=== PATIENT | male | born 1935 | race Caucasian/White ===

== ENCOUNTER 2018-05-14 14:22 | Inpatient (IN) ==
--- NOTE | 2018-05-14 16:01 | Diag Imaging Result Doc PS360 ---
EXAM: CHEST-1 VIEW HISTORY: fever TECHNIQUE: Chest single view COMPARISON: 04/28/2014 FINDINGS: Poor inspiratory effort.. The heart is not enlarged. The vessels are not distended. There are no infiltrates. No effusion identified. IMPRESSION: No pneumonia. Electronically signed by Todd Starr 05/14/2018 3:59 PM
--- NOTE | 2018-05-14 16:03 | Diag Imaging Result Doc PS360 ---
EXAM: XRAY HIP W/PELVIS BILAT 3-4VWS HISTORY: fall, FOF, ? hip pain TECHNIQUE: Pelvis and hips, five views COMPARISON: None. FINDINGS: No fracture. No dislocation. Severe atherosclerosis. IMPRESSION: No acute bony injury. Electronically signed by Todd Starr 05/14/2018 4:01 PM
[2018-05-14 16:17] LABS: INR 1.15; PROTIME 15.6 Seconds (11.0-16.0)
[2018-05-14 16:18] LABS: PTT 32.1 Seconds (22.3-41.8)
[2018-05-14 16:32] LABS: ALB/GLOB RATIO 0.6; ALBUMIN 2.6 g/dL (3.5-5.0); CALCIUM 7.9 mg/dL (8.8-10.2); CREATININE 3.3 mg/dL (0.7-1.2); MAGNESIUM 2.3 mg/dL (1.5-2.7); POTASSIUM 4.1 mmol/L (3.5-5.1); TOTAL BILIRUBIN 1.14 mg/dL (0.20-1.00); TOTAL PROTEIN 6.6 g/dL (6.3-8.3)
[2018-05-14 16:54] LABS: URINE SOURCE CATH
[2018-05-14 16:57] LABS: BILIRUBIN URINE NEGATIVE (NEGATIVE); BLOOD URINE LARGE (NEGATIVE); COLOR YELLOW; GLUCOSE URINE NEGATIVE (NEGATIVE); KETONE URINE NEGATIVE (NEGATIVE); LEUKOCYTES URINE NEGATIVE (NEGATIVE); NITRITE URINE NEGATIVE (NEGATIVE); PH URINE 5.5; PROTEIN URINE 30 mg/dL (NEGATIVE); SP GRAVITY URINE 1.007; TURBIDITY URINE CLEAR (CLEAR); UROBILINOGEN URINE NORMAL (NORMAL)
[2018-05-14 16:58] LABS: UR EPITHELIAL CELLS <10 /HPF (<10); URINE BACTERIA NEGATIVE /HPF; URINE WBC <10 /HPF (<10)
[2018-05-14 17:01] LABS: CK INDEX 0.6 (0.0-2.5); CK-MB 69.62 ng/mL (0.0-5.0)
[2018-05-14] MEDS ORDERED: SODIUM BICARBONATE 8.4% 100 MEQ in D5W 1,000 ML IV ONE (18:06)
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
[2018-05-14] MEDS ORDERED: SODIUM BICARBONATE 8.4% 100 MEQ in D5W 1,000 ML IV SCH (19:00)
[2018-05-14 20:11] LABS: BASO# 0.02 X1000 (0.0-0.2); BASO% 0.2 % (0.0-0.8); HEMATOCRIT 37.8 % (42.0-52.0); HEMOGLOBIN 12.2 g/dL (14.0-18.0); IMM GRAN# 0.02 X1000 (0.0-0.04); IMM GRAN% 0.2 % (0.0-0.5); LYMPH% 12.3 % (20.5-51.1); MCHC 32.3 g/dL (33-37); MCV 105.3 FL (81-99); MONO# 0.89 X1000 (0.11-0.59); MONO% 9.1 % (1.7-9.3); MPV 9.8 FL (7.4-10.4); NEUT# 7.56 X1000 (1.4-6.5); NEUT% 77.2 % (42.2-75.2); PLT 65 X1000 (130-400); RBC 3.59 XMIL (4.7-6.1); RDW 13.3 % (11.5-14.5); WBC 9.79 X1000 (4.8-10.8)
[2018-05-14] MEDS: ROCEPHIN 1 GM in NS 50 ML IV SCH (20:38)
--- NOTE | 2018-05-14 22:51 | HISTORY AND PHYSICAL ---
ADMITTING PHYSICIAN: Dr. Abraham Churchill. CHIEF COMPLAINT: Fever and fell down. PRESENT ILLNESS: Patient is an 82-year-old, white male who is taken care of by his family at home, who had been running fever yesterday, up to 102 degrees Fahrenheit. He, apparently, fell and the family had monitors watching him and found him about 30 minutes after he fell. He said he did not complain of a whole lot, at that time, but overnight and into the next morning he started complaining of aching all over. The patient has multiple problems in his past history. PAST MEDICAL HISTORY: Past history includes history of alcohol abuse with cirrhosis, cervical spondylosis, COPD, L2 compression fracture, dementia, hypertension, gout, prostate cancer, hepatitis C infection, and has good bit of swelling, he is now complaining of aching and hurting all over but, apparently, he was sick even before he had his fall. He had been on Aldactone at one time, and that was stopped because of hyperkalemia. CURRENT MEDICATIONS INCLUDE: 1. Allopurinol 100 mg daily. 2. Flexeril 5 mg at bedtime for muscle aches. 3. Benadryl 12.5 mg p.o. q.4-6 hours p.r.n. 4. Colace 100 mg p.o. b.i.d. 5. He has been on Lovenox, at least at 1 point, may still be 30 mg subcutaneously daily. 6. Furosemide 20 mg daily, but he is also on Bumex as well. 7. Hydrocodone 1 p.o. b.i.d., 8. [place] 5-325. 9. Medrol Dosepak was listed on his records. 10. Flagyl was listed on his records at 500 mg p.o. t.i.d., not sure that he is currently on that. 11. Omeprazole 20 mg p.o. daily. 12. Potassium chloride 20 mEq daily. 13. Still listed as spironolactone, but family tells me he is not on that anymore. 14. Tamsulosin 0.4 mg p.o. daily. 15. Trazodone 50 mg at bedtime. So, he is on several anticholinergic medications. FAMILY HISTORY INCLUDES: Four girls and 2 boys in good health. SOCIAL HISTORY: He was a very heavy drinker and smoker at one time, quit drinking about 10 years ago, but did have cirrhosis. Family members do tell me that he has got some dementia. He is a Do Not Resuscitate. REVIEW OF SYSTEMS: Neurological: Denies headaches, seizures, visual problems. Pulmonary: Says he has had a cough. Cardiovascular: Denies chest pain, heart palpitations, PND. Does have generalized edema, I do not know whether this is from his cirrhosis or whether he has had some heart failure. I was told that he had an echocardiogram sometime in the past that was normal. Genitourinary: Has had prostate cancer. He takes tamsulosin for urination. He has been on allopurinol in the past, not sure whether he is still on that or not. The patient has had a ruptured diverticulum and had to have a partial colectomy, had that colostomy revised and then he had some ischemic bowel at one time, had some surgery on it as well. Endocrine: He has no diabetes or pituitary or thyroid problems. Psychiatric: Apparently has had some depression, sleep disturbance, takes trazodone for that. PHYSICAL EXAMINATION: VITAL SIGNS: Temperature 97.9 degrees Fahrenheit, but family tells me yesterday he had a temperature of 102 degrees Fahrenheit. Pulse 87, respirations 18, blood pressure 109/60. Oxygen saturation on room air was 100%. HEENT: Normocephalic. EOMs intact. PERRLA. Throat clear. NECK: Does hold his neck and his head to the right, he says ever since he had a fall he has done that. Has a history of spinal stenosis. LUNGS: Clear to auscultation and percussion without rhonchi, rales, or wheezes. HEART: Regular rate and rhythm without murmurs, gallops, friction rubs. ABDOMEN: Soft. Active bowel sounds. No organomegaly or tenderness. NEUROLOGICAL: The patient is a little confused, does wake up and talk with me but does not answer most of my questions. Family members were there who did answer questions. RECTAL: Deferred. GENITOURINARY/RECTAL: Deferred. EXTREMITIES: Do show 4+ pitting edema. He has generalized edema as well. LAB WORK: His sodium was 144, potassium 4.1, chloride 101, CO2 of 28, BUN is 56, creatinine 3.3. Blood sugar is 149. Not sure what his creatinine has been in the past but his daughter that is with him is a nurse, she says she does not believe it has ever been that high before. His creatine kinase was 11,108. He has elevated liver function tests with a total bilirubin of 1.14, AST of 366, ALT of 68. CK index is only 0.6, MB is 69.62, troponin 0.085. I do not believe this is his heart, I think it is skeletal muscle. Urinalysis did show 10 to 20 RBCs with a large amount of blood, negative for leukocytes, negative for bacteria. The patient has complained that he aches all over. Has not been tested for flu yet, we will do this. Also, have to be concerned possibly about sepsis but I do not see a CBC on the chart yet. ASSESSMENT: 1. Rhabdomyolysis. 2. Renal failure. 3. Possible sepsis. 4. Rule out influenza. 5. Cirrhosis. 6. Chronic edema. 7. Dementia. 8. Prostate cancer. 9. The patient is a DO NOT RESUSCITATE. PLAN: Will place in the hospital. Test for flu. We will start IV antibiotics, give IV fluids. Have to be careful with that as well due to his condition of retaining fluid. As far as we know, it is not heart failure, at least it is not systolic heart disease or has not been in the past. cc: MD Abraham Llanos Jr, MD
[2018-05-15 06:36] LABS: BASO# 0.02 X1000 (0.0-0.2); BASO% 0.2 % (0.0-0.8); EOS# 0.53 X1000 (0.0-0.7); EOS% 5.6 % (0.0-10.0); HEMOGLOBIN 11.6 g/dL (14.0-18.0); LYMPH# 1.93 X1000 (1.2-3.4); LYMPH% 20.3 % (20.5-51.1); MCH 33.3 PG (27-31); MCHC 32.2 g/dL (33-37); MCV 103.4 FL (81-99); MONO# 1.01 X1000 (0.11-0.59); MONO% 10.6 % (1.7-9.3); MPV 10.2 FL (7.4-10.4); NEUT# 6.04 X1000 (1.4-6.5); NEUT% 63.3 % (42.2-75.2); PLT 60 X1000 (130-400); RBC 3.48 XMIL (4.7-6.1); RDW 13.3 % (11.5-14.5); WBC 9.53 X1000 (4.8-10.8)
[2018-05-15 07:13] LABS: ALB/GLOB RATIO 0.5; ALBUMIN 2.2 g/dL (3.5-5.0); CALCIUM 7.7 mg/dL (8.8-10.2); CREATININE 3.2 mg/dL (0.7-1.2); POTASSIUM 3.8 mmol/L (3.5-5.1); TOTAL BILIRUBIN 0.95 mg/dL (0.20-1.00); TOTAL PROTEIN 6.3 g/dL (6.3-8.3)
--- NOTE | 2018-05-15 09:13 | ED EKG INTERP ---
This chart was entered by Yen Munoz Scribe, acting as scribe for Mamadou Chino MD. EKG Interpretation - EKG Time of EKG reading by physician:: 18:31 EKG Read and Signed by:: Mamadou Chino EKG Interpretation (*Must complete 3 of following elements*): Abnormal (sinus rhythm with 1st degree AV block with premature atrial complexes with aberrant conduction. Right bundle branch block Septal infarct, age undetermined. Abnormal ECG) Rate: 85 Rhythm: Sinus [place]: normal QRS: RBB Attestation - Physician/ LANETTE Attestation The physician spent face to face time with patient:: Yes Advanced Practice Provider documentation review:: Supervising physician onsite and consulted in the evaluation and care of this patient. The physician did have a face to face encounter with the patient. This chart was documented by the indicated scribe, (Yen Munoz Scribe) and accurately reflects the services I performed and decisions made by me, Mamadou Chino MD, as attested by the provider's signature.
[2018-05-15 11:47] LABS: URINE SOURCE CATH
[2018-05-15 11:49] LABS: BILIRUBIN URINE NEGATIVE (NEGATIVE); BLOOD URINE MODERATE (NEGATIVE); COLOR YELLOW; GLUCOSE URINE NEGATIVE (NEGATIVE); KETONE URINE NEGATIVE (NEGATIVE); LEUKOCYTES URINE MODERATE (NEGATIVE); NITRITE URINE NEGATIVE (NEGATIVE); PH URINE 5.5; PROTEIN URINE 30 mg/dL (NEGATIVE); TURBIDITY URINE HAZY (CLEAR); UROBILINOGEN URINE NORMAL (NORMAL)
[2018-05-15 11:57] LABS: UR EPITHELIAL CELLS <10 /HPF (<10); URINE BACTERIA NEGATIVE /HPF; URINE CASTS GRANULAR PRESENT; URINE CRYSTALS NONE SEEN; URINE RBC 20-40 /HPF (<10); URINE SMALL ROUND CELLS NONE SEEN; URINE YEAST NONE SEEN
[2018-05-15 13:43] LABS: UR CREAT RANDOM 117.1 mg/dL (14-26); UR PROT RANDOM 39.5 mg/dL
--- NOTE | 2018-05-15 14:06 | PROGRESS NOTE ---
DATE: 05/15/2018 SUBJECTIVE: The patient says he feels a little bit better. He had a fall and has developed rhabdomyolysis. He has cirrhosis and ascites with edema. He has also had some kidney failure. OBJECTIVE: Vital Signs: Blood pressure 100/65, respirations 19, pulse 105. Temperature was 99.2 degrees Fahrenheit. Supposedly had a 102 temperature at home. HEENT: Normocephalic. EOMs intact. Neck: He holds his neck to the right because of spinal stenosis. He head is pointed to the right. Lungs: Have a few wheezes anteriorly. He had been a smoker at one time and may have some COPD. Chest x-ray was clear. Heart: Regular rate and rhythm without murmurs, gallops, or friction rubs. Abdomen: Soft. Active bowel sounds. No organomegaly or tenderness. He does have what appears to be ascites. Neurological: Intact grossly. LABORATORY DATA: White count is only 9530. Hemoglobin 11.6, hematocrit 36.0. Creatinine is 3.2, BUN 61. His CK is down from 11,246 to 4690. Awaiting blood cultures and urine cultures. Influenza screen was negative. ASSESSMENT: 1. Rhabdomyolysis. 2. Fall. 3. Rule out sepsis. 4. Renal failure. 5. Cirrhosis. PLAN: Continue support. The patient may also have a COPD. He could not tell me how long he smoked. cc: MD Abraham Llanos Jr, MD
--- NOTE | 2018-05-15 15:07 | Diag Imaging Result Doc PS360 ---
EXAM: US RENAL 2 (RETROPER) COMPLETE HISTORY: decreased renal function TECHNIQUE: Renal ultrasound COMPARISON: None. FINDINGS: The kidney is poorly seen. The right kidney measures 8.7 x 4.0 x 4.3 cm. Mild cortical thinning. No stone or hydronephrosis. No renal mass. The left kidney measures 9.8 x 4.0 x 5.9 cm. Normal renal echotexture. Borderline mild cortical thinning. No stone or hydronephrosis. No renal mass. There is a Butts catheter within the urinary bladder. IMPRESSION: No focal abnormality identified. Electronically signed by Todd Starr 05/15/2018 3:05 PM
[2018-05-15] MEDS: ROCEPHIN 1 GM in NS 50 ML IV SCH (20:07)
[2018-05-16 06:14] LABS: BASO# 0.02 X1000 (0.0-0.2); BASO% 0.3 % (0.0-0.8); EOS# 0.44 X1000 (0.0-0.7); EOS% 5.8 % (0.0-10.0); HEMATOCRIT 32.8 % (42.0-52.0); HEMOGLOBIN 10.6 g/dL (14.0-18.0); LYMPH# 2.27 X1000 (1.2-3.4); LYMPH% 29.8 % (20.5-51.1); MCH 33.5 PG (27-31); MCHC 32.3 g/dL (33-37); MCV 103.8 FL (81-99); MONO# 0.83 X1000 (0.11-0.59); MONO% 10.9 % (1.7-9.3); MPV 9.9 FL (7.4-10.4); NEUT# 4.06 X1000 (1.4-6.5); NEUT% 53.2 % (42.2-75.2); PLT 71 X1000 (130-400); RBC 3.16 XMIL (4.7-6.1); WBC 7.62 X1000 (4.8-10.8)
[2018-05-16 06:27] LABS: ALB/GLOB RATIO 0.5; CALCIUM 7.5 mg/dL (8.8-10.2); CREATININE 2.9 mg/dL (0.7-1.2); POTASSIUM 3.9 mmol/L (3.5-5.1); TOTAL BILIRUBIN 0.83 mg/dL (0.20-1.00); TOTAL PROTEIN 5.9 g/dL (6.3-8.3)
[2018-05-16] MEDS: NICODERM PATCH TD SCH (11:10)
--- NOTE | 2018-05-16 13:06 | PROGRESS NOTE ---
DATE: 05/16/2018 SUBJECTIVE: The patient is more alert. He is feeling better. His appetite is increased. OBJECTIVE: Vital Signs: Blood pressure 137/69, respirations 16, pulse 90, temperature 98.8 degrees Fahrenheit. HEENT: Normocephalic. EOMs intact. PERRLA. Throat clear. Lungs: Clear to auscultation and percussion without rhonchi, rales, or wheezes. Heart: Regular rate and rhythm without murmurs, gallops, friction rubs. Abdomen: Soft. Active bowel sounds. No organomegaly or tenderness. Neurological: Intact grossly. The patient does have ascites and has a history of liver disease. LABORATORY DATA: Urinalysis now shows 10 to 20 WBCs per high-power field. He probably does have a urinary tract infection. ASSESSMENT: 1. Rhabdomyolysis. 2. Fall. 3. Rule out sepsis. One blood culture has gram-positive cocci. We are waiting for the rest of that. 4. Renal failure with creatinine coming down to 2.9. 5. Cirrhosis. 6. Probable urinary tract infection. PLAN: Continue antibiotics. Await culture reports. Urine culture actually showed no growth, but he has pus now. Will re-culture. cc: MD Abraham Llanos Jr, MD
[2018-05-16] MEDS: ROCEPHIN 1 GM in NS 50 ML IV SCH (20:14)
[2018-05-17 05:41] LABS: BASO# 0.02 X1000 (0.0-0.2); BASO% 0.4 % (0.0-0.8); EOS# 0.43 X1000 (0.0-0.7); EOS% 7.8 % (0.0-10.0); HEMATOCRIT 33.1 % (42.0-52.0); HEMOGLOBIN 10.8 g/dL (14.0-18.0); LYMPH# 1.11 X1000 (1.2-3.4); LYMPH% 20.3 % (20.5-51.1); MCH 33.9 PG (27-31); MCHC 32.6 g/dL (33-37); MCV 103.8 FL (81-99); MONO# 0.71 X1000 (0.11-0.59); MPV 9.5 FL (7.4-10.4); NEUT# 3.21 X1000 (1.4-6.5); NEUT% 58.5 % (42.2-75.2); PLT 75 X1000 (130-400); RBC 3.19 XMIL (4.7-6.1); WBC 5.48 X1000 (4.8-10.8)
[2018-05-17 05:58] LABS: ALB/GLOB RATIO 0.5; CREATININE 2.2 mg/dL (0.7-1.2); POTASSIUM 4.4 mmol/L (3.5-5.1); TOTAL BILIRUBIN 0.91 mg/dL (0.20-1.00); TOTAL PROTEIN 6.2 g/dL (6.3-8.3)
--- NOTE | 2018-05-17 09:12 | EKG Report ---
Test Performed on : 05/14/2018 6:25:49 PM Test Reason : LH Blood Pressure : / mmHG Vent. Rate : 085 BPM Atrial Rate : 085 BPM P-R Int : 214 ms QRS Dur : 126 ms QT Int : 420 ms P-R-T Axes : -06 -23 -28 degrees QTc Int : 499 ms Sinus rhythm. with 1st degree AV block. with premature atrial complexes. with aberrant conduction. Right bundle branch block Septal infarct (cited on or before 01-APR-2014) Abnormal ECG When compared with ECG of 19-APR-2014 07:28, aberrant conduction. is now present [place] interval has increased Vent. rate has decreased BY 54 BPM Right bundle branch block is now present Questionable change in initial forces of Anterolateral leads Unconfirmed Result
[2018-05-17] MEDS: NICODERM PATCH TD SCH (09:20)
--- NOTE | 2018-05-17 15:46 | NEPHROLOGY CONSULTATION ---
DATE: 05/17/2018 REASON FOR ADMISSION: Fall, fever. REASON FOR CONSULTATION: Acute kidney injury. CONSULTING PHYSICIAN: Dr. Fish. HISTORY OF PRESENT ILLNESS: This is an 82-year-old gentleman who is taken care of by his family. He had multiple episodes of fever. The patient had a fall and was down for about 30 minutes. The next day complained of severe pain and aching all over. In the emergency room he was found to have a creatinine of 3.3, BUN of 56, sodium of 144. He had a CK of 11,000, CK- MB was 69.62. He had a large amount of blood but negative for leukocytes or bacteria. He had negative flu test. Patient was admitted to the hospital with acute renal failure likely secondary to rhabdomyolysis. Patient has been treated with IV fluids and renal function has improved steadily since admission and is down to 2.2 today. Urine output has been excellent with greater than 2 L urine output. He is awake and alert today without any issues. PAST MEDICAL HISTORY: Cirrhosis, spondylolysis, COPD, dementia, hypertension, gout, prostate cancer, hepatitis C, edema. ALLERGIES: Amantadine. HOME MEDICATIONS: Allopurinol, Flexeril, Benadryl, Colace, Lovenox, furosemide , hydrocodone, [place], Medrol dose pack, Flagyl, omeprazole, sodium chloride, spironolactone, trazodone. FAMILY HISTORY: Noncontributory. SOCIAL HISTORY: Previously heavy drinker and smoker quit about 10 years ago. No ETOH, tobacco or illicit drug use currently. He is a DNR 1. REVIEW OF SYSTEMS: Pertinent positives noted in the HPI. PHYSICAL EXAM: Vital Signs: Temperature 98.2 degrees, pulse 94, respiratory rate 12, blood pressure 126/70, intake 1.9 L, output 2.2 L. General: This is an elderly gentleman sitting up in bed, he is awake and alert. He answers yes to everything. His daughter comes up to the bedside states this is usual state of health. HEENT: Normocephalic, atraumatic. BART. Conjunctivae are pale. Oral mucosa dry. Dentition poor. Neck: Supple. There is no JVD. Cardiovascular: Regular rate and rhythm. He has a large bruise to his upper chest wall. Pulmonary: He has equal excursion. He is clear bilaterally. Abdomen: Soft, distended, positive bowel sounds. : Butts catheter, yellow urine. Extremities: He has significant pitting edema bilateral lower extremities up to the waist. Integumentary: Skin is warm and dry. Neurologic : Again some confusion but grossly nonfocal. LAB DATA: WBC of 5.4, hemoglobin 10.8, sodium 143, potassium 4.4, CO2 31, BUN 60, creatinine 2.2, albumin 2.0, CK 870 (1868, 4690). ASSESSMENT/PLAN: Acute on chronic kidney disease in setting of rhabdomyolysis. Patient has had significant improvement over the course of the hospitalization. He does not need further intervention from a renal standpoint in the form of dialysis. We agree with the current treatment plan and will make no changes. Will continue to monitor him while he is in the hospital. Dictated by BROWN Minaya for Javier Stewart MD Face to face encounter, data reviewed, discussed with Bolivar Starks on 05/17/18. I agree with the above assessment and plan of care. cc: MD Abraham Carpenter MD [facility]
[2018-05-17] MEDS: ROCEPHIN 1 GM in NS 50 ML IV SCH (20:19)
[2018-05-17] MEDS: COLACE PO SCH (20:27)
[2018-05-17] MEDS: PROTONIX IV SCH (20:28)
[2018-05-17] MEDS: FLOMAX PO SCH (20:28)
[2018-05-17] MEDS: SODIUM CHLORIDE 0.9% INJ SCH (20:28)
--- NOTE | 2018-05-18 05:37 | PROGRESS NOTE ---
DATE: 05/17/2018 HISTORY: An 82-year-old, white gentleman, patient of mine, who was not seen since September 2016. Was brought in by family over the weekend with altered mental status, acute kidney injury, fall, and fever. He was admitted in the ICU by Dr. Fish. Apparently, he has slight rhabdomyolysis and kidney injury, on IV fluids which have been stopped. Ultrasound was done. It showed chronic medical renal disease. Butts was placed. He has been eating breakfast. Family was at bedside. PAST MEDICAL HISTORY: Reviewed. PAST SURGICAL HISTORY: Reviewed. MEDICINES: Reviewed. ALLERGIES: Memantine. REVIEW OF SYSTEMS: No headache. No vision problem. No earache. No sore throat. Cardiopulmonary: No chest pain or shortness of breath. GI: No constipation. No neurological symptoms or weakness. PHYSICAL EXAMINATION: Vital Signs: Stable. Temperature is 98 degrees, pulse 93, blood pressure 126/69. HEENT Examination: 2 cm basal cell originating from the left philtrum. He is eating breakfast. He is kyphotic. Bilateral air entry. Heart sounds are regular. Belly is soft , nontender. No obvious neurological deficits. LABORATORY DATA: CBC: White cell count 5.4, hematocrit 33, platelets 75,000. SMA 7: Sodium 143, potassium 4.2, chloride 103, BUN 60, creatinine 2.2, calcium 8.0. LFTs are slightly high. CK was coming down. Urine myoglobin was positive. Albumin is 2.0. Urinalysis is positive for blood and infection. Urine myoglobin is high. Blood cultures, Streptococcus viridans positive. Urine cultures were negative. Influenza test was negative. Ultrasound of the kidneys, small contracted kidneys. Chest x-ray on 05/14/2018 , no acute disease. X-ray of the pelvis, no acute bony injury. EKG, sinus rhythm, first-degree AV block, incomplete right bundle. X-ray of the pelvis, no acute bony injury. ASSESSMENT AND PLAN: 1. An 82-year-old, white male admitted to the hospital with rhabdomyolysis after he fell and with acute kidney injury. Off intravenous fluids and CK was coming down. We will follow up on the labs in the morning. 2. Hip injury. No acute bony injury identified. 3. 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 4. Chronic hepatitis C. 5. Elevated liver function tests, stable. 6. Thrombocytopenia, stable. 7. History of prostate cancer. We will follow up on PSA. 8. History of dementia, stable. 9. Aortic stenosis. Echocardiography last was done 2013. 10. History of a left colectomy due to ischemic colitis in 2014, stable. 11. Last PSA was 6.5, followed by Dr. Dasilva. 12. Streptococcus mitis infection. He is on intravenous ceftriaxone. 13. Gastrointestinal prophylaxis with intravenous Protonix. 14. Benign prostatic hypertrophy, on Flomax. 15. We will slowly reconcile home medicines. 16. Living will is Do Not Resuscitate. 17. We will transfer to the floor when a bed is available. LEVEL OF DOCUMENTATION: Thirty-five minutes. Discussed the plan of care with the family at bedside. cc: Abraham Churchill MD MTDD
[2018-05-18 05:38] LABS: BASO# 0.02 X1000 (0.0-0.2); BASO% 0.4 % (0.0-0.8); EOS# 0.47 X1000 (0.0-0.7); EOS% 8.8 % (0.0-10.0); HEMATOCRIT 32.2 % (42.0-52.0); HEMOGLOBIN 10.4 g/dL (14.0-18.0); IMM GRAN# 0.02 X1000 (0.0-0.04); IMM GRAN% 0.4 % (0.0-0.5); LYMPH# 1.25 X1000 (1.2-3.4); LYMPH% 23.3 % (20.5-51.1); MCH 33.4 PG (27-31); MCHC 32.3 g/dL (33-37); MCV 103.5 FL (81-99); MONO# 0.83 X1000 (0.11-0.59); MONO% 15.5 % (1.7-9.3); MPV 9.4 FL (7.4-10.4); NEUT# 2.78 X1000 (1.4-6.5); NEUT% 51.6 % (42.2-75.2); PLT 75 X1000 (130-400); RBC 3.11 XMIL (4.7-6.1); RDW 13.1 % (11.5-14.5); WBC 5.37 X1000 (4.8-10.8)
[2018-05-18 06:14] LABS: AGAP 9; BUN 57 mg/dL (8-22); CHLORIDE 104 mmol/L (98-107); COSMO 301; GLUCOSE 101 mg/dL (70-104); POTASSIUM 4.3 mmol/L (3.5-5.1); SODIUM 143 mmol/L (136-145); TCO2 30 mmol/L (25-35)
[2018-05-18 06:15] LABS: ALB/GLOB RATIO 0.6; ALBUMIN 2.2 g/dL (3.5-5.0); ALKALINE PHOSPHATASE 81 U/L (32-122); CALCIUM 7.3 mg/dL (8.8-10.2); TOTAL BILIRUBIN 1.14 mg/dL (0.20-1.00)
[2018-05-18 06:16] LABS: GOT 124 U/L (10-34); GPT 53 U/L (10-44)
[2018-05-18] MEDS: NICODERM PATCH TD SCH (09:15)
[2018-05-18] MEDS: COLACE PO SCH ×2 (09:15→22:28)
[2018-05-18] MEDS: LEXAPRO PO SCH (09:15)
--- NOTE | 2018-05-18 15:19 | NEPHROLOGY PROGRESS NOTE ---
DATE: 05/18/2018 SUBJECTIVE: He states he is "good as he can be." No new complaints. No nausea, shortness of breath, etc. OBJECTIVE: Vital Signs: Blood pressure 126/68, heart rate 94, respirations 17. Intake and output: Intake 1 L. Output 1 L. General: Chronically ill, no distress. Skin: Warm and dry. HEENT: Conjunctivae are pink. Oropharynx is dry. Neck: Neck veins are not visible. Heart: Regular. Lungs: Equal. No crackles. Abdomen: Soft, nontender. Bowel sounds present. Extremities: 2+ edema. No clubbing or cyanosis. IMPRESSION: Acute kidney injury. BUN and creatinine continue to improve. Acceptable urine output. He does not meet criteria for dialysis. cc: MD Abraham Carpenter MD
--- NOTE | 2018-05-18 21:51 | PROGRESS NOTE ---
DATE: 05/18/2018 SUBJECTIVE: The patient is feeling better and no complaints. EXAMINATION: Vital Signs: Temp is 98, pulse 95, blood pressure 120/69. HEENT: Within normal limits. Basal cell on the left side of the philtrum noted. Chest: Chest is bilateral air entry. Heart sounds are regular with a subtle murmur in the aortic area. Abdomen: Belly is soft, nontender. Extremities: He has a chronic venous stasis dermatitis changes noted in both legs. He is bedridden. He still has a Butts catheter. INVESTIGATIONS: CBC: White cell count 5.3, hematocrit 33, MCV 5, platelets 75, 000. SMA-7: BUN is 7, sodium 143 potassium 4.3 chloride 104, BUN 57, creatinine 2.0, glucose 101 , calcium 7.3. Liver function tests were slightly high. PSA was 10.74. Urine cultures negative. Blood cultures were negative. One is positive for Strep Viridans ASSESSMENT AND PLAN: 1. Acute kidney injury due to mild rhabdomyolysis, improving. 2. CA of prostate. PSA was 10, under the care of Dr. Dasilva. Continue on Flomax. 3. DVT prophylaxis with Lovenox. 4. Hepatitis C, thrombocytopenia, elevated LFTs stable. 5. Depression, on Lexapro. 6. Chronic insomnia; on trazodone. 7. Continue on MiraLAX for stool softener, Strep viridans infection on IV ceftriaxone. 8. Repeat the labs in the morning and transferred to the floor. Living will, DNR. Slowly ambulate for assistance with Physical Therapy. We will discuss with the family about the disposition. LEVEL OF DOCUMENTATION: 25 minutes. cc: Abraham Churchill MD [facility]
[2018-05-18] MEDS: DESYREL PO SCH (22:28)
[2018-05-18] MEDS: FLOMAX PO SCH (22:28)
[2018-05-18] MEDS: ROCEPHIN 1 GM in NS 50 ML IV SCH (22:35)
[2018-05-18] MEDS: PROTONIX IV SCH (22:35)
[2018-05-19 06:45] LABS: ALB/GLOB RATIO 0.6; ALBUMIN 2.1 g/dL (3.5-5.0); CREATININE 1.9 mg/dL (0.7-1.2); TOTAL BILIRUBIN 1.33 mg/dL (0.20-1.00); TOTAL PROTEIN 5.7 g/dL (6.3-8.3)
[2018-05-19] MEDS: LOVENOX SUBQ SCH (09:40)
[2018-05-19] MEDS: MIRALAX PO SCH (09:40)
[2018-05-19] MEDS: NICODERM PATCH TD SCH (09:40)
[2018-05-19] MEDS: COLACE PO SCH ×2 (09:40→21:37)
[2018-05-19] MEDS: LEXAPRO PO SCH (09:40)
--- NOTE | 2018-05-19 11:29 | NEPHROLOGY PROGRESS NOTE ---
DATE: 05/19/2018 TIME SEEN: 0730. SUBJECTIVE: Patient is resting in bed. He is awake and alert. No complaints. OBJECTIVE: Vital Signs: Temperature 97.8 degrees, pulse 85, respiratory rate 16, blood pressure 121/59. Intake 1.5 L. Output 1.1 L. Physical Examination: General: Elderly gentleman resting in bed. Awake and alert. He is in no acute distress. HEENT: Normocephalic, atraumatic. BART. Neck: Supple without JVD. Cardiovascular: Regular rate and rhythm. Pulmonary: He is clear bilaterally. Abdomen: Soft. Positive bowel sounds. : No inspected. Extremities: There is 1 to 2+ edema. No clubbing or cyanosis. Integumentary: Skin is warm and dry with multiple areas of ecchymoses noted, especially across the chest area. Lab Data: Sodium 138, potassium 4.0, CO2 31, creatinine 1.9 (2.0). ASSESSMENT AND PLAN: 1. Acute kidney injury with slow improvement. Urine output is acceptable. 2. History of elevated prostate-specific antigen, followed by primary and urology. Dictated by BROWN Minaya for Javier Stewart MD Face to face encounter, data reviewed, discussed with Bolivar Starks on 05/19/18. I agree with the above assessment and plan of care. cc: MD Abraham Carpenter MD MTDD
[2018-05-19] MEDS ORDERED: NS 1,000 ML ONE (12:13)
--- NOTE | 2018-05-19 19:19 | PROGRESS NOTE ---
DATE: 05/19/2018 SUBJECTIVE: The patient is getting better. Out of the ICU. Family at the bedside. Wants to go back home with home health care. Wants physical therapy. SUBJECTIVE: Vital signs: He is afebrile. Vitals are stable. Pulse is 100, blood pressure 122/66. HEENT: Within normal limits. Bruising noted. Chest: Clear. Heart: Sounds are regular. Abdomen: Belly is soft, nontender. : Butts was placed. Musculoskeletal: Stasis changes in both legs. INVESTIGATIONS: SMA 7: BUN 57, creatinine 1.9. LFTs were high. PSA 10.7. Urine cultures were negative. ASSESSMENT AND PLAN: 1. Acute kidney injury due to rhabdomyolysis, stable. 2. Prostate cancer. Stable on Flomax. 3. Living Will/Do not resuscitate. 4. Deep vein thrombosis prophylaxis. Lovenox. 5. Chronic thrombocytopenia, hepatitis C, stable. Continue IV ceftriaxone and repeat the blood workup in the morning. Continue present treatment. LEVEL OF DOCUMENTATION: 25 minutes. cc: Abraham Churchill MD
[2018-05-19] MEDS: ROCEPHIN 1 GM in NS 50 ML IV SCH (21:37)
[2018-05-19] MEDS: FLOMAX PO SCH (21:37)
[2018-05-19] MEDS: DESYREL PO SCH (21:37)
[2018-05-19] MEDS: PROTONIX IV SCH (21:37)
[2018-05-20] MEDS ORDERED: LASIX IV ONE (07:12)
[2018-05-20 07:41] LABS: CALCIUM 7.9 mg/dL (8.8-10.2); CREATININE 2.1 mg/dL (0.7-1.2); POTASSIUM 4.1 mmol/L (3.5-5.1)
[2018-05-20 07:49] LABS: HEMATOCRIT 30.5 % (42.0-52.0); HEMOGLOBIN 9.9 g/dL (14.0-18.0); MCH 33.8 PG (27-31); MCHC 32.5 g/dL (33-37); MCV 104.1 FL (81-99); MPV 9.6 FL (7.4-10.4); RBC 2.93 XMIL (4.7-6.1); RDW 13.3 % (11.5-14.5); WBC 6.14 X1000 (4.8-10.8)
[2018-05-20] MEDS: LOVENOX SUBQ SCH (08:47)
[2018-05-20] MEDS: NICODERM PATCH TD SCH (08:48)
[2018-05-20] MEDS: LEXAPRO PO SCH (08:48)
[2018-05-20] MEDS: COLACE PO SCH ×2 (08:48→20:32)
--- NOTE | 2018-05-20 10:26 | NEPHROLOGY PROGRESS NOTE ---
DATE: 05/20/2018 DATE SEEN: 05/20/2018. TIME SEEN: 0635. SUBJECTIVE: Mr. Rangel is resting in bed. He is supine. He states that he has slight neck discomfort to the left with bruising evident. Otherwise, denies chest pain or increased work of breathing. OBJECTIVE: His most recent vital signs, temperature 98.5 degrees, blood pressure 127/50, heart rate 94, respirations 16. He is on room air. Last recorded saturation is 94%. He has had 1080 in, 800 out to Butts catheter. LABORATORY DATA: Sodium is 134, potassium 4.1, chloride 97, CO2 29, BUN 60, creatinine 2.1, glucose 96. His anion gap is 8, calcium is 7.9. Previous albumin 2.1. White count 6.14, hemoglobin 9.9, hematocrit 30.5 with a platelet count of 80,000. PHYSICAL EXAMINATION: General: This is an 82-year-old white male, currently resting in bed. He appears in no acute distress though he is chronically ill. Skin: Warm and dry. HEENT: Normocephalic, atraumatic. Conjunctiva is pale. BART. Mucous membranes are dry. Neck: Supple. Trachea midline. Trace JVD, 8 cm. Cardiovascular: Regular rate and rhythm. He has a systolic murmur present. Lungs: Diminished breath sounds. Clear to auscultation bilateral. O2 supplementation in place. Abdomen: Soft. Slightly distended. Positive bowel sounds. Genitourinary: Not inspected. Butts catheter is in place with adequate urine out. Extremities: There is 1-2+ lower extremity edema. Integumentary: Warm and dry with multiple areas of ecchymosis noted to his upper chest and upper arms. Neurological: Alert and oriented to person and place only. ASSESSMENT AND PLAN: 1. Acute kidney injury. Patient continues to have slow improvement. His creatinine today remains stable at 2.1 from 1.9 on the previous day. His BUN is just slightly elevated today. He was given Lasix yesterday. He continues with slight jugular venous distension. We will plan to give him 40 mg of Lasix IV today also. Continue to monitor. He has had adequate urine output. 2. Electrolytes and acid-base balance. These are acceptable. 3. Anemia. This is low but stable. 4. Fluid volume overload. Again, patient has positive jugular venous distension , again with Lasix to be given today. 5. Possible rhabdomyolysis. Patient's last CPK was down to 180 yesterday. I would like to thank you for allowing us to follow with this patient. Dictated by BROWN Fatima for Javier Stewart MD Face to face encounter, data reviewed, discussed with Yvonne Marques on 05/20/18. I agree with the above assessment and plan of care. cc: BROWN Fatima MD Jagan Reddy, MD [facility]
[2018-05-20] MEDS: ROCEPHIN 1 GM in NS 50 ML IV SCH ×2 (20:31→22:31)
[2018-05-20] MEDS: FLOMAX PO SCH (20:32)
[2018-05-20] MEDS: DESYREL PO SCH (20:32)
[2018-05-20] MEDS: PROTONIX IV SCH ×2 (20:32→22:34)
--- NOTE | 2018-05-20 20:56 | PROGRESS NOTE ---
DATE: 05/20/2018 SUBJECTIVE: The patient is getting better. Complains of insomnia, still bedridden. EXAMINATION: Vital Signs: Temperature is 97, pulse is 80, blood pressure is 118/52. on O2 ]nasal cannula. HEENT: Exam within normal limits. Neck: Supple. No lymphadenopathy. Chest: Bilateral air entry. Heart: Sounds are regular. Abdomen: Belly is soft, nontender. Decreased redness in both legs. INVESTIGATIONS: CBC: White cell count 6.1, hematocrit 30, platelets 80. SMA-7 : BUN 60, creatinine 2.1. ASSESSMENT AND PLAN: 1. Acute kidney injury, stable. Given Lasix. 2. Chronic thrombocytopenia, stable. 3. Prostate cancer, stable. 4. Out of the bed with physical therapy. 5. Constipation on Colace. 6. Insomnia. Started on Desyrel at bedtime. 7. Rhabdomyolysis, improving. 8. Discussed with the family and will make discharge home tomorrow with out of the bed with home health care. In the meantime, we will do the physical therapy today. cc: Abraham Churchill MD MTDD
[2018-05-21 07:48] LABS: ALBUMIN 2.1 g/dL (3.5-5.0); CREATININE 2.2 mg/dL (0.7-1.2); PHOSPHORUS 4.3 mg/dL (2.7-4.5); POTASSIUM 4.1 mmol/L (3.5-5.1)
[2018-05-21] MEDS: COLACE PO SCH ×2 (09:46→21:29)
[2018-05-21] MEDS: LEXAPRO PO SCH (09:46)
[2018-05-21] MEDS: LOVENOX SUBQ SCH (09:46)
[2018-05-21] MEDS: NICODERM PATCH TD SCH (09:46)
[2018-05-21] MEDS: MIRALAX PO SCH (09:46)
--- NOTE | 2018-05-21 17:42 | NEPHROLOGY PROGRESS NOTE ---
DATE: 05/21/2018 SUBJECTIVE: He is eating. No shortness of breath. He states he feels better. OBJECTIVE: Blood pressure 144/59, heart rate 98, respirations 14, afebrile. Intake 900 mL, output 1.1 L. On physical exam, no acute distress. Skin is warm and dry. Conjunctivae are pink. Neck veins are not distended. Heart is regular. No gallops. Lungs are equal, distant. No crackles. Abdomen soft, benign. Bowel sounds present. Extremities: Trace edema. No clubbing or cyanosis. IMPRESSION AND PLAN: Acute kidney injury. Baseline creatinine is not known to us in the last 2 years. I expect that he does have some degree of underlying chronic kidney disease, given that his kidneys are approximately 9 cm bilaterally. In the last 2 days his BUN has risen, though his urine output is acceptable. His volume status on exam appears acceptable. He is not receiving diuretics, though he did receive a single dose of furosemide on 05/20. We will observe without any further diuretic therapy. cc: MD Abraham Carpenter MD
--- NOTE | 2018-05-21 20:19 | PROGRESS NOTE ---
DATE: 05/21/2018 SUBJECTIVE: An 82-year-old white male who came out of the ICU. Still bedridden. Talked to the family yesterday on the phone. They want to discontinue the Butts, make sure he is voiding the urine. Also, wants some physical therapy while is in the hospital, before he comes home. REVIEW OF SYSTEMS: None reported. Has good sleep. PHYSICAL EXAMINATION: Vital Signs: Temperature 97 degrees, pulse 97, blood pressure is 120/62. General: Bedridden. Had a kyphosis. Chest: Clear. Heart: Sounds are regular. Abdomen: Belly is soft, obese. Extremities: Stasis changes in both legs noted. LABS: SMA-7: BUN 69, creatinine 2.2. PSA 10.7. ASSESSMENT AND PLAN: 1. Acute kidney injury due to rhabdomyolysis. Leveled off. The patient was given Lasix. Increase the fluids by mouth. 2. Discontinue Butts. 3. Check the postvoid residual volume. 4. Cancer of prostate. PSA 10 on Flomax. 5. Out of the bed with physical therapy. 6. Insomnia, on Desyrel 100 at bedtime. 7. Deep venous thrombosis prophylaxis with Lovenox. 8. Chronic thrombocytopenia. 9. Elevated LFTs due to hepatitis is stable. 10. Living will, DNR. Plan of care is out of the bed with physical therapy, and continue to monitor the SMA-7 and postvoid residual urine over the weekend. cc: Abraham Churchill MD
[2018-05-21] MEDS: SODIUM CHLORIDE 0.9% INJ SCH (21:29)
[2018-05-21] MEDS: DESYREL PO SCH (21:29)
[2018-05-21] MEDS: ROCEPHIN 1 GM in NS 50 ML IV SCH (21:29)
[2018-05-21] MEDS: PROTONIX IV SCH (21:29)
[2018-05-21] MEDS: FLOMAX PO SCH (21:29)
[2018-05-22 07:13] LABS: ALBUMIN 2.1 g/dL (3.5-5.0); CALCIUM 8.2 mg/dL (8.8-10.2); CREATININE 2.2 mg/dL (0.7-1.2); PHOSPHORUS 4.5 mg/dL (2.7-4.5); POTASSIUM 4.5 mmol/L (3.5-5.1)
[2018-05-22] MEDS: LOVENOX SUBQ SCH (08:27)
[2018-05-22] MEDS: COLACE PO SCH ×2 (08:30→22:26)
[2018-05-22] MEDS: NICODERM PATCH TD SCH (08:31)
[2018-05-22] MEDS: LEXAPRO PO SCH (08:31)
--- NOTE | 2018-05-22 11:19 | PROGRESS NOTE ---
DATE: 05/22/2018 SUBJECTIVE: The patient says he is feeling better overall. No specific complaints. OBJECTIVE: Afebrile, pulse 93, respirations 16, blood pressure 117/60, O2 saturation on nasal cannula is 93% to 96%. Cardiovascular: Regular rate and rhythm with murmur. Lungs: Fairly clear, distant breath sounds. Abdomen is soft. Active bowel sounds. Nontender and nondistended. Extremities: There is 2+ lower extremity edema with mild red hue diffusely. Neurologic: The patient is alert, talkative. Appears stable at his baseline. DIAGNOSTIC DATA: Sodium is 134, potassium 4.5, chloride 99, CO2 is 22, BUN is 67, creatinine 2.2. Calcium 8.2. Albumin 2.1. Urine culture from 05/16/2018 negative. Blood culture from 05/14/2018 with 1 of the 2 positive for Streptococcus viridans. ASSESSMENT: 1. Acute kidney injury secondary to rhabdomyolysis, now stabilized, and the patient is being left off diuretics per Dr. Stewart. 2. Prostate cancer with Butts catheter out, and the patient has been able to void reasonably well at this point without the catheter. 3. Cirrhosis of the liver. 4. Chronic thrombocytopenia. 5. Hepatitis C. PLAN: We will place ARTEMIO hose. Continue prophylactic dose of Lovenox. He is on Rocephin. His kidney function is being monitored with encouragement of oral fluids. Post void residuals are going monitored. cc: MD Abraham Fleming MD
[2018-05-22] MEDS: DESYREL PO SCH (22:25)
[2018-05-22] MEDS: ROCEPHIN 1 GM in NS 50 ML IV SCH (22:26)
[2018-05-22] MEDS: SODIUM CHLORIDE 0.9% INJ SCH (22:26)
[2018-05-22] MEDS: FLOMAX PO SCH (22:26)
[2018-05-22] MEDS: PROTONIX IV SCH (22:27)
[2018-05-23 06:42] LABS: ALBUMIN 2.1 g/dL (3.5-5.0); CALCIUM 8.2 mg/dL (8.8-10.2); CREATININE 2.1 mg/dL (0.7-1.2); PHOSPHORUS 4.5 mg/dL (2.7-4.5); POTASSIUM 3.6 mmol/L (3.5-5.1)
[2018-05-23] MEDS: LOVENOX SUBQ SCH (09:59)
[2018-05-23] MEDS: COLACE PO SCH ×2 (09:59→20:19)
[2018-05-23] MEDS: NICODERM PATCH TD SCH (10:00)
[2018-05-23] MEDS: LEXAPRO PO SCH (10:00)
[2018-05-23] MEDS: MIRALAX PO SCH (10:00)
--- NOTE | 2018-05-23 11:00 | PROGRESS NOTE ---
DATE: 05/23/2018 SUBJECTIVE: Patient is feeling better he says. OBJECTIVE: Vitals: Afebrile. Vital signs stable. CARDIOVASCULAR: Regular rate and rhythm. No murmur. Lungs: Clear. Abdomen: Soft, nontender. Last bowel movement today. Extremities: 2+ lower extremity edema. Neurologic: Stable at baseline. LABORATORY: Creatinine 2.1, BUN [*], potassium 3.6, sodium 136. ASSESSMENT: 1. Acute kidney injury secondary to rhabdomyolysis, now stabilized and likely at his new baseline. Creatinine 2 to 3 years ago was running 1.4. 2. Prostate cancer with Butts catheter out. 3. Cirrhosis of the liver. 4. Chronic thrombocytopenia. 5. Hepatitis C. PLAN: Continue Rocephin, ARTEMIO hose, Lovenox, prophylaxis and encouragement of oral liquids. He is eating about 50% of his meals at this point. Continue to repeat his BMP each morning. cc: MD Abraham Fleming MD
[2018-05-23] MEDS: FLOMAX PO SCH (20:19)
[2018-05-23] MEDS: SODIUM CHLORIDE 0.9% INJ SCH (20:19)
[2018-05-23] MEDS: PROTONIX IV SCH (20:19)
[2018-05-23] MEDS: DESYREL PO SCH (20:19)
[2018-05-23] MEDS: ROCEPHIN 1 GM in NS 50 ML IV SCH (20:19)
[2018-05-24] MEDS: ROCEPHIN 1 GM in NS 50 ML IV SCH ×2 (01:58→20:59)
[2018-05-24] MEDS: PROTONIX IV SCH ×2 (01:58→20:59)
[2018-05-24 06:59] LABS: CALCIUM 8.1 mg/dL (8.8-10.2); PHOSPHORUS 4.3 mg/dL (2.7-4.5); POTASSIUM 3.7 mmol/L (3.5-5.1)
[2018-05-24] MEDS ORDERED: LASIX IV ONE (07:33)
[2018-05-24] MEDS: LEXAPRO PO SCH (09:05)
[2018-05-24] MEDS: COLACE PO SCH ×2 (09:05→20:58)
[2018-05-24] MEDS: LOVENOX SUBQ SCH (09:05)
[2018-05-24] MEDS: NICODERM PATCH TD SCH (09:05)
--- NOTE | 2018-05-24 10:43 | NEPHROLOGY PROGRESS NOTE ---
DATE: 05/24/2018 SUBJECTIVE: Mr. Rangel is resting quietly in bed. He is nonverbal today. He does make eye contact, though nothing spoken. He appears a little tachypneic. OBJECTIVE: His most recent vital signs temperature 98.4 degrees, blood pressure 120/53, heart rate 87, respirations 17. The patient is on 3 L nasal cannula, last recorded saturation 95%. He has had 1600 in. He has had 1000 per Butts catheter. LABORATORY DATA: Sodium 135, potassium 3.7, chloride 99, CO2 27, BUN 68, creatinine 2, glucose 99, anion gap of 9, calcium 8.1, phosphorus 4.3, albumin is 2. Hemoglobin is 9.9 on the 05/20/2018. PHYSICAL EXAMINATION: General: This is an 83-year-old elderly male. He is currently resting quietly in bed. He appears chronically ill, in no acute distress today. HEENT : Normocephalic, atraumatic. Conjunctiva is pale. He has BART. Mucous membranes are dry. Neck : Supple, trachea midline. He has positive JVD at 8 cm. Cardiovascular: Regular rate and rhythm. Lungs: Diminished inspiratory effort. Poor air exchange. Remains on O2. Abdomen: Soft, nontender. Positive bowel sounds. Genitourinary: Not inspected. Butts catheter is in place. Extremities: He has 3+ lower extremity edema up into the mid hip region/ Integumentary: Patient continues with multiple areas of ecchymosis across the chest. Neurological: As mentioned above. ASSESSMENT AND PLAN: 1. Acute kidney injury. The patient has had slow improvement. Urine output is improved. Creatinine remains stable at 2. 2. Electrolytes and acid-base balance. These remain fairly stable. 3. Anemia this remains close to target, not repeated since the . We will defer to the primary care. 4. Fluid volume overload. Patient has increased JVD and lower extremity edema up into the mid hip region. We will add 40 mg of Lasix IV push today. We will re-evaluate in the a.m. I would like to thank you for allowing us to follow with this patient. Dictated by BROWN Fatima for Javier Stewart MD Face to face encounter, data reviewed, discussed with Yvonne Marques. I agree with the above assessment and plan of care. cc: BROWN Fatima MD Jagan Reddy, MD MTDD
[2018-05-24] MEDS: FLOMAX PO SCH (20:58)
[2018-05-24] MEDS: DESYREL PO SCH (20:59)
--- NOTE | 2018-05-24 21:14 | PROGRESS NOTE ---
DATE: 05/24/2018 Events noted over the weekend. Patient had a birthday celebration yesterday. She is still bedridden not able to ambulate, slowly eating well. REVIEW OF SYSTEMS: Had a good sleep. Butts was discontinued. EXAM: Temperature 97 degrees, pulse is 85, blood pressure stable. Is making urine 1000 mL, I's and O's are negative.HEENT: Within normal limits. Chest: Clear. Heart: Sounds are regular. Belly: Is soft, nontender. Decreased edema in both legs. LABS: Sodium 135, potassium 3.7, BUN 68, creatinine 2.0. ASSESSMENT AND PLAN: 1. Acute kidney injury, rhabdomyolysis improving. 2. Chronic thrombocytopenia, hepatitis C stable. 3. Prostate cancer stable, discontinued Butts. Deconditioning and out of the bed with physical therapy. Will discuss with the family about disposition. Living will, DNR. 4. History of Strep viridans infection, continue on IV ceftriaxone and if it continues to improve and postvoid residual urine less, his creatinine slowly coming down will discharge and disposition will be discussed with the family. LEVEL OF DOCUMENTATION: 25 minutes. cc: Abraham Churchill MD MTDD
[2018-05-25 06:52] LABS: ALBUMIN 2.1 g/dL (3.5-5.0); CALCIUM 8.1 mg/dL (8.8-10.2); CREATININE 1.8 mg/dL (0.7-1.2); PHOSPHORUS 4.2 mg/dL (2.7-4.5); POTASSIUM 3.9 mmol/L (3.5-5.1)
[2018-05-25] MEDS: COLACE PO SCH (08:24)
[2018-05-25] MEDS: LEXAPRO PO SCH (08:24)
[2018-05-25] MEDS: LOVENOX SUBQ SCH (08:25)
[2018-05-25] MEDS: MIRALAX PO SCH (08:25)
[2018-05-25] MEDS: NICODERM PATCH TD SCH (08:25)
[2018-05-25] MEDS ORDERED: LASIX IV ONE (09:12)
--- NOTE | 2018-05-25 09:43 | NEPHROLOGY PROGRESS NOTE ---
DATE: 05/25/2018 TIME SEEN: 0650. SUBJECTIVE: Mr. Rangel is much more awake and alert today. He does not remember yesterday's conversation with us at all. He denies any pain or increased work of breathing. States that his breathing, he feels, is improved today from yesterday. OBJECTIVE: His most recent vital signs, last temperature 97.8 degrees, blood pressure 115/61, heart rate 80, respirations 18. He is on room air, last recorded saturation is 98%. The patient has had 1355 in, 1525 out. LABORATORY DATA: Sodium 135, potassium 3.9, chloride 98, CO2 26, BUN 64, creatinine 1.8, glucose 86. The patient's anion gap is 11, calcium 8.1, phosphorus 4.2, albumin is 2.1. He had a previous hemoglobin of 9.9 on the . PHYSICAL EXAMINATION: General: This is an 83-year-old elderly male. He is resting in bed, in no acute distress though appears chronically ill. Skin: Warm and dry. HEENT: Normocephalic, atraumatic. Conjunctivae is pale pink. He has BART. Mucous membranes are dry. Neck: Supple. Trachea midline. He continues with positive JVD at the 8 cm claudia. Cardiovascular: Regular rate and rhythm. No gallop present. He does have a systolic murmur. Lungs: Clear to auscultation bilaterally. Equal excursion on O2. Abdomen: Soft, round, large, nontender. Positive bowel sounds. Genitourinary: Not inspected. Patient has been voiding, urinal is at the bedside. Extremities: Have 2 to 3+ lower extremity edema. He does have a wound dressing to his left elbow. Integumentary: Multiple areas of ecchymoses across the chest and the upper arms. Neurological: As above. ASSESSMENT AND PLAN: 1. Acute kidney injury. The patient has continued with slow improvement. Urine output remains stable. He responded nicely to the Lasix yesterday. Creatinine remains stable at 1.8 with extra Lasix on board. 2. Fluid volume overload. The patient remains with positive jugular venous distension and bibasilar fine crackle to the left with positive edema. We will add 40 mg of Lasix IV again today. 3. Electrolytes, acid-base balance and anemia. These are all acceptable. We will check a CBC in the a.m. I would to thank you for allowing us to follow with this patient. Dictated by BROWN Fatima for Javier Stewart MD Face to face encounter, data reviewed, discussed with Yvonne Marques on 05/25/18. I agree with the above assessment and plan of care. cc: BROWN Fatima MD Jagan Reddy, MD [facility]
--- NOTE | 2018-05-25 19:42 | PROGRESS NOTE ---
DATE: 05/25/2018 SUBJECTIVE: The patient is a lot better out of the bed only to the chair, encouraging for ambulation. Butts was out. Creatinine is coming down. Will check the postvoid residual urine. OBJECTIVE: Temperature is 97 degrees, pulse 90, vitals are stable.HEENT: Within normal limits. Chest: Is clear . Heart: Sounds are regular. Belly: Soft, nontender. INVESTIGATIONS: SMA 7 sodium 135, potassium 3.9, chloride 98, BUN 64, creatinine 1.8. ASSESSMENT AND PLAN: Acute kidney injury is improving. Recheck the labs in the morning. Encourage out of the bed with physical therapy. Living will, DNR and continue IV ceftriaxone for Strep viridans infection. Hopefully if he is able to walk will discharge home with home health care. LEVEL OF DOCUMENTATION: 25 minutes. cc: Abraham Churchill MD
[2018-05-25] MEDS: PROTONIX IV SCH (23:59)
[2018-05-25] MEDS: ROCEPHIN 1 GM in NS 50 ML IV SCH (23:59)
[2018-05-25] MEDS: DESYREL PO SCH (23:59)
[2018-05-25] MEDS: SODIUM CHLORIDE 0.9% INJ SCH (23:59)
[2018-05-26] MEDS: COLACE PO SCH ×3 (00:06→21:47)
[2018-05-26 06:35] LABS: ALBUMIN 2.1 g/dL (3.5-5.0); CALCIUM 8.4 mg/dL (8.8-10.2); CREATININE 1.7 mg/dL (0.7-1.2); PHOSPHORUS 4.1 mg/dL (2.7-4.5); POTASSIUM 3.7 mmol/L (3.5-5.1)
[2018-05-26 06:36] LABS: BASO# 0.04 X1000 (0.0-0.2); BASO% 0.7 % (0.0-0.8); EOS# 0.38 X1000 (0.0-0.7); EOS% 6.9 % (0.0-10.0); HEMATOCRIT 29.5 % (42.0-52.0); HEMOGLOBIN 9.7 g/dL (14.0-18.0); LYMPH# 1.22 X1000 (1.2-3.4); LYMPH% 22.2 % (20.5-51.1); MCH 34.5 PG (27-31); MCHC 32.9 g/dL (33-37); MONO# 0.64 X1000 (0.11-0.59); MONO% 11.6 % (1.7-9.3); MPV 9.6 FL (7.4-10.4); NEUT# 3.22 X1000 (1.4-6.5); NEUT% 58.6 % (42.2-75.2); PLT 99 X1000 (130-400); RBC 2.81 XMIL (4.7-6.1); RDW 14.2 % (11.5-14.5)
[2018-05-26] MEDS: NICODERM PATCH TD SCH (08:35)
[2018-05-26] MEDS: LEXAPRO PO SCH (08:35)
[2018-05-26] MEDS: LASIX IV SCH ×2 (08:35→21:46)
[2018-05-26] MEDS: LOVENOX SUBQ SCH (08:35)
--- NOTE | 2018-05-26 08:52 | NEPHROLOGY PROGRESS NOTE ---
DATE: 05/26/2018 SUBJECTIVE: Mr. Rangel is resting quietly in bed. He is more awake than he was yesterday. States that he is feeling better and his breathing has improved. OBJECTIVE: His most recent vital signs, temperature 97.7 degrees, blood pressure 109/51 heart rate is 86, his respirations are about 12 to 14. He is currently on 2 L nasal cannula. Last recorded saturation 97%. He has had 240 in 1700 out. The patient has been voiding. LABORATORY DATA: Sodium is 137, potassium 3.7, chloride 101 CO2 29, BUN 64, creatinine 1.7, glucose 97. His anion gap is 7, calcium 8.4, phosphorus 4.1, albumin is 2.1. White count 5.5, hemoglobin 9.7, hematocrit 29.5, platelet count is 99,000. PHYSICAL EXAMINATION: General: This is an 83-year-old elderly male. He is currently resting in bed. He appears chronically ill no acute distress. Skin: Warm and dry. HEENT: Normocephalic, atraumatic. Conjunctiva is pale pink. He has BART. Mucous membranes are dry. Neck: Supple, trachea midline. He continues with positive JVD approximately 6 to 8 cm. Cardiovascular: He is regular rate and rhythm. No gallop appreciated. Systolic murmur remains. Lungs: Clear to auscultation anteriorly. Equal excursion. Abdomen: Soft nontender, positive bowel sounds. Genitourinary: The patient has been voiding adequate amount documented. Extremities: He does continue with 2+ lower extremity edema. This has improved over the last 24 to 48 hours. Integumentary: He continues with multiple areas of ecchymosis across the chest and the upper arms. Neurological: As above. ASSESSMENT AND PLAN: 1. Acute kidney injury. This has improved. His creatinine is now down to 1.7. BUN remains elevated at 64. More than likely secondary to diuretic affect. He has had adequate urine output. No indications for dialysis intervention. 2. Fluid volume overload. Patient does continue with positive JVD and edema. We will change his Lasix to 40 mg IV every 12. We will re-evaluate labs in the a.m. and the patient's volume status. 3. Electrolytes, acid-base balance and anemia. These all remain fairly acceptable. His hemoglobin is at 9.7 today after repeat. I would like to thank you for allowing us to follow with this patient. Dictated by BROWN Fatima for Javier Stewart MD Face to face encounter, data reviewed, discussed with Yvonne Marques on 05/26/18. I agree with the above assessment and plan of care. cc: BROWN Fatima MD Jagan Reddy, MD [facility]ITAL[facility]rine[facility]
--- NOTE | 2018-05-26 19:59 | PROGRESS NOTE ---
DATE: 05/26/2018 SUBJECTIVE: The patient continues to improve slowly. Able to be getting out of the bed. Discussed with the patient's daughter about the plan of care. Postvoid residual urine is 0. PHYSICAL EXAMINATION: Vital signs: Temperature is 98.2 degrees, pulse is 70, blood pressure 120/65. HEENT: Within normal limits. Chest: Clear. Cardiovascular: Heart sounds are regular. INVESTIGATIONS: CBC: White cell count 5, hematocrit 29, platelets 99,000. SMA-7: Sodium 137, potassium 3.7, BUN 64, creatinine 1.7, albumin 2.1. ASSESSMENT AND PLAN: 1. Acute kidney injury is improving. 2. Fever, most likely from Streptococcus viridans from the teeth. The patient is getting IV ceftriaxone which is somewhat resistant, and we are going to change that to Levaquin. 3. Hepatitis C, increased liver function tests. 4. Thrombocytopenia, stable. 5. Benign prostatic hypertrophy, carcinoma of prostate, on Flomax. Emptying the bladder very well. 6. Chronic insomnia, on Desyrel 100 at bedtime. 7. Depression, on Lexapro. 8. Evaluation for home oxygen. We will get ABG on room air and repeat the chest x-ray, and hopefully we will make the arrangements transitioning care to home with outpatient home health care. LEVEL OF DOCUMENTATION: 25 minutes. cc: Abraham Churchill MD
[2018-05-26] MEDS: PROTONIX IV SCH (21:45)
[2018-05-26] MEDS: FLOMAX PO SCH ×2 (21:46)
[2018-05-26] MEDS: DESYREL PO SCH (21:46)
[2018-05-26] MEDS: SODIUM CHLORIDE 0.9% INJ SCH (21:46)
[2018-05-27 05:50] LABS: ALLEN TEST YES; BE 5.5 mmoll (-3.0-3.0); BLOOD TYPE ARTERIAL; HCO3-(ACT) 29.2 mmoll (20.0-26.0); METHB 0.7 % (0.0-1.5); O2(CT) 13.9 mL/dL (15.0-23.0); O2HB 96.5 % (95.0-99.0); PCO2(98.6) 46 mmHg (35-45); PO2(98.6) 118 mmHg (60-100); SAMPLE BLOOD; SAO2 99.8 % (95.0-100.0); THB 10.1 g/dL (11.5-17.4); pH(98.6) 7.43 (7.35-7.45)
[2018-05-27 06:59] LABS: MODALITY CANNULA
[2018-05-27 07:39] LABS: ALBUMIN 2.2 g/dL (3.5-5.0); CREATININE 2.1 mg/dL (0.7-1.2); POTASSIUM 3.5 mmol/L (3.5-5.1)
[2018-05-27] MEDS: LEVAQUIN PO SCH (08:34)
[2018-05-27] MEDS: LASIX IV SCH ×2 (08:34→20:23)
[2018-05-27] MEDS: LEXAPRO PO SCH (08:34)
[2018-05-27] MEDS: COLACE PO SCH ×2 (08:34→20:25)
[2018-05-27] MEDS: LOVENOX SUBQ SCH (08:35)
[2018-05-27] MEDS: NICODERM PATCH TD SCH (08:35)
[2018-05-27] MEDS: MIRALAX PO SCH (08:36)
--- NOTE | 2018-05-27 11:17 | Diag Imaging Result Doc PS360 ---
EXAM: CHEST-2 VIEWS HISTORY: hypoxia TECHNIQUE: Chest two views COMPARISON: 05/14/2018 FINDINGS: Poor inspiratory effort. The heart is mildly prominent. No pulmonary edema. There are tiny pleural effusions with basilar atelectasis versus small infiltrates. There is a compression fracture in the lower thoracic spine. IMPRESSION: 1.Emphysema 2.Basilar atelectasis versus small infiltrates 3.Mildly prominent heart with tiny pleural effusions Electronically signed by Todd Starr 05/27/2018 11:15 AM
--- NOTE | 2018-05-27 18:39 | NEPHROLOGY PROGRESS NOTE ---
DATE: 05/27/2018 DATE AND TIME: Date seen 05/27/2018, time seen 07. SUBJECTIVE: Mr. Rangel is resting quietly in bed. States that he is feeling better. He has been out of bed yesterday. OBJECTIVE: Vital Signs: His most recent vital signs: Temperature 98.6, blood pressure 130/55, heart rate 82, respirations are 20. He is on 2 L nasal cannula. Last recorded saturation 98%. He has had 1500 in; he has had 640 mL out in response with his Lasix p.o. yesterday. LABORATORY DATA: Sodium 140, potassium 3.5, chloride 102, CO2 29, BUN 69, creatinine 2.1, glucose is 94. Anion gap 69, calcium 8, phosphorus 4, albumin 2.2. The patient had a previous hemoglobin of 9.7 yesterday. PHYSICAL EXAMINATION: General: This is an 83-year-old elderly gentleman. He appears chronically ill, though no acute distress. Skin: Warm and dry. HEENT: Normocephalic, atraumatic. Conjunctiva has been pale. He has BART. Mucous membranes are dry. Neck: Supple. Trachea midline. He continues with positive JVD. Cardiovascular: Regular rate and rhythm. He has a systolic murmur. No gallop appreciated. Lungs: Clear to auscultation anteriorly. Equal excursion on O2. Abdomen: Slightly distended, soft. Positive bowel sounds. Genitourinary: Not inspected. Patient has been voiding adequate amounts. Extremities: Continues with 2+ lower extremity edema today in response with the Lasix that he has been given in the last 48 hours. He does continue to have a dressing to his left elbow. This is dry and intact. Neurologic: As above. ASSESSMENT AND PLAN: 1. Acute kidney injury. The patient's BUN and creatinine have gently gone up slightly today, more than likely secondary to his diuretic affect. We will continue to monitor this. Patient does remain on Lasix 40 mg IV q.12 hours. We will change this over to p.o. more than likely in the a.m. 2. Electrolytes and acid-base balance. These are acceptable. 3. Anemia. This is low but stable. 4. Sepsis. Patient remains on Levaquin renally dosed. I would like to thank you for allowing us to follow with this patient. Dictated by BROWN Fatima for Javier Stewart MD Face to face encounter, data reviewed, discussed with Yvonne Marques on 05/27/18. I agree with the above assessment and plan of care. cc: BROWN Fatima MD Jagan Reddy, MD [facility]
--- NOTE | 2018-05-27 20:08 | PROGRESS NOTE ---
DATE: 05/27/2018 SUBJECTIVE: The patient is doing much better and he is able to walk. Slowly improving. OBJECTIVE: Vital Signs: Temperature is 97 degrees, pulse is 89, blood pressure is 118/65. HEENT: Within normal limits. Neck: Supple. Chest: Clear. Heart: Sounds are regular. LABORATORY DATA: ABG, 28%, pH is 7.43, pCO2 46, PO2 118. SMA 7, creatinine is 2.1. ASSESSMENT AND PLAN: 1. Acute kidney injury is getting better. 2. Deconditioning, slowly improving. 3. Strep viridans infection. Levaquin 250 daily. 4. Will discharge in the morning with outpatient home healthcare. LEVEL OF DOCUMENTATION: 25 minutes. cc: Abraham Churchill MD
[2018-05-27] MEDS: SODIUM CHLORIDE 0.9% INJ SCH (20:24)
[2018-05-27] MEDS: DESYREL PO SCH (20:24)
[2018-05-27] MEDS: PROTONIX IV SCH (20:24)
[2018-05-27] MEDS: FLOMAX PO SCH (20:25)
[2018-05-28] MEDS: PROTONIX IV SCH (03:32)
[2018-05-28 07:14] LABS: ALBUMIN 2.1 g/dL (3.5-5.0); CALCIUM 8.5 mg/dL (8.8-10.2); CREATININE 1.9 mg/dL (0.7-1.2); PHOSPHORUS 3.5 mg/dL (2.7-4.5); POTASSIUM 3.5 mmol/L (3.5-5.1)
[2018-05-28] MEDS ORDERED: LASIX PO SCH (09:00)
[2018-05-28] MEDS: LEVAQUIN PO SCH (09:41)
[2018-05-28] MEDS: LOVENOX SUBQ SCH (09:41)
[2018-05-28] MEDS: LEXAPRO PO SCH (09:41)
[2018-05-28] MEDS: NICODERM PATCH TD SCH (09:41)
[2018-05-28] MEDS: COLACE PO SCH (09:42)
[2018-05-28 15:18] VITALS: BP 125/58
--- NOTE | 2018-05-28 15:30 | NEPHROLOGY PROGRESS NOTE ---
DATE: 05/28/2018 SUBJECTIVE: Mr. Rangel is resting quietly in bed. He is awake. He states that he is feeling better every day. OBJECTIVE: His most recent vital signs, temperature is 98.8 degrees, blood pressure 135/77, heart rate 87, respirations 19. He is on 2 liters nasal cannula, last recorded saturation 97%. He has had 1960 input and 875 output to void. LABORATORY DATA: His sodium is 139, his potassium is 3.5, chloride 100, CO2 of 27. BUN is 75, creatinine is 1.9 with a glucose of 90. The patient has an anion gap of 12. His calcium is 8.5, phosphorus is 3.5 with an albumin of 2.1. Previous hemoglobin 9.7. PHYSICAL EXAMINATION: General: This is an 83-year-old elderly male, resting quietly in bed. He appears in no acute distress. Skin: Warm and dry. HEENT: Normocephalic, atraumatic. Conjunctiva is pale. He has BART. Mucous membranes dry. Neck: Supple. Trachea midline. Unable to determine JVD due his upright position and positioning of his neck and neck pillow. Cardiovascular: Regular rate and rhythm. He has a systolic murmur. Lungs: Clear to auscultation anteriorly, equal excursion. Remains on O2. Abdomen: Slightly distended, soft, nontender. Positive bowel sounds. Genitourinary: Not inspected. The patient is voiding an adequate amount. Extremities: Continues though improved of 1 to 2+ lower extremity edema. He does have edema to the left upper elbow, greater than right. This does have dressing dry and intact. Neurological: As above. ASSESSMENT AND PLAN: 1. Acute kidney injury. Patient's BUN is slightly elevated, more likely secondary to large doses of Lasix twice daily per intravenously, though his creatinine has stabilized between 1.7 and 2.1 over the last 48 to 72 hours. Adequate urine output has been documented. We will decrease his Lasix to 40 mg by mouth from intravenously. Continue to monitor it twice daily in preparation to prepare the patient for discharge. 2. Electrolytes and acid-base balance. These are acceptable. 3. Anemia. This is low but acceptable. 4. Sepsis. Patient remains on renal dosed Levaquin, followed by the primary care. I would like to thank you for allowing us to follow with this patient. Dictated by BROWN Fatima for Javier Stewart MD cc: BROWN Fatima MD Jagan Reddy, MD
--- NOTE | 2018-05-29 15:42 | DISCHARGE SUMMARY ---
ADMISSION DATE: 05/14/2018 DISCHARGE DATE: 05/28/2018 DISCHARGING DIAGNOSIS: Acute kidney injury due to rhabdomyolysis. SECONDARY DIAGNOSES: 1. Strep viridans bacteremia. 2. Chronic thrombocytopenia due to chronic liver disease. 3. 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 4. COPD. 5. History of alcohol use in the past. 6. Cervical spondylosis. 7. Hypertension. 8. Gout. 9. Prostate cancer under the care of Dr. Dasilva. 10. Chronic insomnia. 11. Reactive depression. CONSULT: Dr. Stewart. HOSPITAL COURSE: In brief, he is an 83-year-old white gentleman who was not seen in my office since 2017, with above problems. Running fever and a fall, sustained injury to the hips, with elevated CK and acute kidney injury. Patient was admitted by Dr. Fish in ICU. As follows: 1. Patient was given IV fluids, and followup hydration. His renal function tests slowly came back to the baseline, around 1.9. CK also came down to normal. Initial x-rays were negative for any fracture. The patient continues to deteriorate in terms of the deconditioning. He did require assistance for ambulation by Physical Therapy. 2. He also has a fever workup showed Strep viridans infection most likely from teeth. The patient was given IV ceftriaxone, changed to Levaquin. There were no signs of endocarditis. 3. The patient was able to ambulate; however, slightly hypoxic on exertion. He qualified for home oxygen. Family decided to take him home with outpatient home health care. LABS: At the time of discharge as follows: CBC: White cell count 5.8, hematocrit 29.5, platelets 99,000. PT 15, INR 1.1. ABG on 28%: pH is 7.43, pCO2 46, PO2 118. Sodium 139, potassium 3.5, chloride 100, BUN 75, creatinine 1.9, albumin 2.1. Influenza screen test negative. Blood cultures 1 out of 2 positive with Strep viridans. Urine cultures were negative. Creatine kinase initially was 10,000 and on 05/22/2018 came back 58. The patient did not require any dialysis. Butts was discontinued. Patient is voiding very well. Bladder scan showed 0 mL. His PSA was 10 under the care of Dr. Dasilva, which was diagnosed malignancy. The patient is tolerating the diet well. He did achieve maximum benefit while he was in the hospital. The patient has a living will. DNR. DISCHARGE INSTRUCTIONS: 1. Outpatient home health care. 2. Oxygen, as needed. 3. Outpatient physical therapy for assistance. 4. Trazodone 100 mg at bedtime, Flomax 0.4 daily, discontinue Lasix, Colace 100 p.o. b.i.d., Bumex 1 mg p.o. b.i.d., Lexapro 10 in the morning, Pepcid 20 p.o. b.i.d., MiraLAX as needed, Levaquin 250 daily for 7 days. 5. Follow up in my office in 2 weeks. We will check the CBC and BMP, and will continue to monitor as an outpatient. cc: MD Javier Robbins MD
== END 2018-05-28 16:15 | disposition home health service (06) | DRG 683 ==
LOC: ED 14:22 → EDIPHOLD 19:26 → ICU 05-15 10:15 → 4N 05-18 18:08
PROVIDERS: ADMIT Internal Medicine; ATTEND Internal Medicine
CPT/HCPCS: 51702; 71010; 71020; 71045; 71046; 73522; 76770; 80048; 80053; 80069; 81001; 82550; 82553; 82570; 82805; 82948; 83605; 83735; 83874; 84153; 84156; 84300; 84484; 85025; 85027; 85610; 85730; 87040; 87077; 87088; 87186; 87275; 87276; 87804; 93005; 96365; 96366; 96368; 97110; 97116; 97162; 97530; 99285; 99291; A9270; C9113; G0103; J0696; J1650; J1940; J7030; J7070; S0164; XXXXX

== ENCOUNTER 2019-04-20 14:59 | Inpatient (IN) ==
[2019-04-20] MEDS ORDERED: SALINE LOCK IV FLUID XX ONE (17:26)
[2019-04-20] MEDS: LASIX IV SCH (18:17)
[2019-04-20] MEDS: SOLU-MEDROL IV SCH (18:18)
[2019-04-20] MEDS: FLOMAX PO SCH (22:30)
[2019-04-20] MEDS: DESYREL PO SCH (22:30)
--- NOTE | 2019-04-20 22:35 | HISTORY AND PHYSICAL ---
CHIEF COMPLAINT: Generalized rash, generalized anasarca, decreased activities of daily living, redness in both legs. HPI: He is an 83-year-old white male was seen in our office on Thursday for the cellulitis. He was sent home on Levaquin and started having some rash all over the body. It does not look like a drug rash and he has generalized edema. Family was brought back again in my office today. He was last seen on 07/23/2018 in my office. He had some compression fracture of L1-L2 and sent to Dr. Sebastian. He had a kyphoplasty done L1-L2 and he has been on chronic pain therapy with Dr. Sebastian. He was basically generalized edema, allergic rash. Basically admitted the hospital for IV diuresis, IV steroids, and improve his activities of daily living. Family is agreed upon. 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 PAST SURGICAL HISTORY: Bilateral cataract surgery, ingrown left toe excision, partial colectomy of the left side with reversal of colostomy, status post left hemicolectomy due to ischemic colitis, appendectomy, cholecystectomy, L1-L2 kyphoplasty. ALLERGIES: Not known. MEDICATIONS: Trazodone 100 at bedtime, Flomax 0.4 at bedtime, Bumex 1 tablet p.o. b.i.d., Pepcid 20 mg daily, MiraLAX 17 g every other day, recently was started on Levaquin, Lasix 40 b.i.d., calcitonin spray 1 spray nostril Daily Lexapro 10 daily, Lorcet 5 mg p.o. b.i.d., MiraLAX 17 g daily. HEALTH MAINTENANCE: Living will DNR. Last blood workup was done 2017 , colonoscopy 2014. REVIEW OF SYSTEMS: HEENT: Is bleeding from the right side of the face. He has been wheelchair bound, barely walk with the bathroom and no headache. No vision problem. No earache. No sore throat. No chest pain, shortness of breath, swelling of the abdomen and swelling of the feet, rash all over the body and denies of any bleeding per rectum. : No history of hesitancy, frequency, dysuria. EXAMINATION: Vital Signs: Temperature is 97 degrees, pulse 82, blood pressure 115/60, weight is 181 pounds. He is wheelchair bound. Multiple basal cell carcinoma on the right sabianist, upper lip, slightly anemic. Neck: Supple. He is kyphotic, very poor air entry distant heart sounds. Belly is soft. Ascites noted. Suboptimal exam. Not able to do rectal exam. 3+ pedal edema in both legs and generalized rash all over the body noted. LABS: On Thursday in my office is pancytopenic. SMA 7 creatinine 2.6. ASSESSMENT AND PLAN: An 83-year-old white gentleman admitted to the hospital. 1. Worsening of pancytopenia, renal failure, generalized anasarca with chronic hepatitis C. Will check the liver function tests, hepatitis C, [employer]. Ultrasound of the abdomen in the morning and protein creatinine ratio. 2. prostate low-grade. We will get a Butts catheter and also check the PSA. 3. L1-L2 kyphoplasty under the pain treatment by Dr. Sebastian. 4. Reconcile home medications. Will give IV steroids. Possible drug rash and also IV Lasix. Fluid restriction, daily weights. We will get a chest x-ray and EKG. Labs in the morning and living will DNR and physical therapy consult for ambulation and palliative care consult initiated. cc: Abraham Churchill MD MTDD
[2019-04-20] MEDS: PEPCID PO SCH (22:52)
[2019-04-21] MEDS: LASIX IV SCH ×2 (06:08→17:28)
[2019-04-21] MEDS: BUMEX PO SCH ×2 (06:08→15:19)
[2019-04-21 07:02] LABS: PROTEIN CREAT RATIO 0.1; UR CREAT RANDOM 63.8 mg/dL (14-26)
--- NOTE | 2019-04-21 07:26 | EKG Report ---
Test Performed on : 04/21/2019 07:08:31 AM Test Reason : cp Blood Pressure : / mmHG Vent. Rate : 070 BPM Atrial Rate : 070 BPM P-R Int : 262 ms QRS Dur : 130 ms QT Int : 464 ms P-R-T Axes : 016 -12 000 degrees QTc Int : 501 ms Sinus rhythm. with 1st degree AV block. Right bundle branch block Abnormal ECG When compared with ECG of 14-MAY-2018 18:25, aberrant conduction. is no longer present Confirmed by Brent POND, Cortes Abrams ([id number]) on 04/21/2019 7:31:47 AM
--- NOTE | 2019-04-21 07:30 | Diag Imaging Result Doc PS360 ---
EXAM: CHEST-1 VIEW 04/21/2019 HISTORY: SOB TECHNIQUE: AP portable at 0623 COMMENT: Compared to 05/27/2018 the pleural fluid collections bilaterally have increased. There is interstitial pulmonary edema. There is cardiomegaly. IMPRESSION: Worsened pleural effusions and pulmonary edema. Electronically signed by Omega Eller 04/21/2019 7:28 AM
[2019-04-21 08:07] LABS: HEMATOCRIT 32.4 % (42.0-52.0); MCH 32.8 PG (27-31); MCHC 30.9 g/dL (33-37); MCV 106.2 FL (81-99); MPV 9.1 FL (7.4-10.4); RBC 3.05 XMIL (4.7-6.1); RDW 12.6 % (11.5-14.5); WBC 2.45 X1000 (4.8-10.8)
[2019-04-21 08:46] LABS: ALB/GLOB RATIO 0.5; ALBUMIN 2.2 g/dL (3.5-5.0); CALCIUM 8.5 mg/dL (8.8-10.2); CREATININE 1.9 mg/dL (0.7-1.2); POTASSIUM 4.1 mmol/L (3.5-5.1); TOTAL BILIRUBIN 0.77 mg/dL (0.20-1.00); TOTAL PROTEIN 6.8 g/dL (6.3-8.3)
[2019-04-21] MEDS: MIRALAX PO SCH (10:10)
[2019-04-21] MEDS: NORCO-5 PO PRN (10:14)
[2019-04-21] MEDS: LEXAPRO PO SCH (10:15)
[2019-04-21] MEDS: FORTICAL NAS SCH (10:15)
--- NOTE | 2019-04-21 12:27 | Diag Imaging Result Doc PS360 ---
EXAM: US ABDOMEN-COMPLETE 04/21/2019 HISTORY: pancytopenia TECHNIQUE: Abdominal ultrasound COMMENT: The visualized portions of the aorta and inferior vena cava are within normal limits. The pancreatic head and body are normal in appearance the tail is obscured. There is antegrade flow in the portal vein. The common bile duct measures 4 mm. The liver is otherwise unremarkable. The kidneys are without evidence of hydronephrosis or mass. The spleen is slightly enlarged measuring almost 15 cm. There has been previous cholecystectomy. IMPRESSION: Splenomegaly. Electronically signed by Omega Eller 04/21/2019 12:25 PM
[2019-04-21] MEDS: SOLU-MEDROL IV SCH (17:28)
[2019-04-21] MEDS: FLOMAX PO SCH (20:56)
[2019-04-21] MEDS: DESYREL PO SCH (20:56)
[2019-04-21] MEDS: PEPCID PO SCH (20:56)
--- NOTE | 2019-04-21 22:26 | PROGRESS NOTE ---
DATE: 04/21/2019 SUBJECTIVE: The patient has mild shortness of breath, swelling of feet. The rash is improving. He has got a Butts, started on diuresis. Poor historian. PHYSICAL EXAMINATION: Vital signs: Temperature is 98 degrees, pulse 84. Vitals are stable. 2 L nasal cannula at 97%. His I's and O's are not well documented, +/- 1.65 L. HEENT: Multiple basal cell carcinoma of the face noted. Neck: Supple, kyphotic. Lungs: Decreased breath sounds on the right side. Cardiovascular: Distant heart sounds. Abdomen: Belly is soft, obese. Extremities: 3+ pedal edema. INVESTIGATIONS: White cell count 2.4, hematocrit 32, platelets 59,000. SMA 7: BUN 49, creatinine 1.9. ProBNP 2200. Urine protein/creatinine ratio 0.1. ProBNP was elevated. EKG normal sinus, first-degree AV block, incomplete right bundle. Chest x-ray with pleural effusion. Ultrasound of the abdomen, splenomegaly. ASSESSMENT AND PLAN: 1. Congestive heart failure, appears to be diastolic dysfunction with pleural fluid on the right side. Continue on IV Lasix. 2. 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 3. L1-L2 kyphoplasty. 4. Cancer of prostate, on Flomax. 5. Rash on the abdomen, questionable etiology. CURRENT TREATMENT: IV Lasix, IV steroids, and living will, DNR. Continue to monitor the hepatitis C viral load and [employer]. Physical therapy evaluation. Will follow up. LEVEL OF DOCUMENTATION: Was 25 minutes. cc: Abraham Churchill MD
[2019-04-22] MEDS: LASIX IV SCH ×3 (06:01→17:24)
[2019-04-22] MEDS: BUMEX PO SCH ×2 (06:02→14:12)
[2019-04-22 08:27] LABS: HEMATOCRIT 30.6 % (42.0-52.0); HEMOGLOBIN 9.5 g/dL (14.0-18.0); MCH 33.2 PG (27-31); MPV 9.7 FL (7.4-10.4); RBC 2.86 XMIL (4.7-6.1); RDW 12.7 % (11.5-14.5); WBC 3.15 X1000 (4.8-10.8)
[2019-04-22] MEDS: MIRALAX PO SCH (09:18)
[2019-04-22] MEDS: FORTICAL NAS SCH (09:19)
[2019-04-22] MEDS: LEXAPRO PO SCH (09:21)
[2019-04-22 09:33] LABS: ALB/GLOB RATIO 0.5; ALBUMIN 2.3 g/dL (3.5-5.0); CALCIUM 8.5 mg/dL (8.8-10.2); CREATININE 2.1 mg/dL (0.7-1.2); POTASSIUM 4.1 mmol/L (3.5-5.1); TOTAL BILIRUBIN 0.48 mg/dL (0.20-1.00); TOTAL PROTEIN 6.8 g/dL (6.3-8.3)
[2019-04-22] MEDS: NORCO-5 PO PRN (11:23)
[2019-04-22] MEDS: SOLU-MEDROL IV SCH ×2 (15:49→17:24)
[2019-04-22] MEDS: FLOMAX PO SCH (21:06)
[2019-04-22] MEDS: PEPCID PO SCH (21:06)
[2019-04-22] MEDS: DESYREL PO SCH (21:06)
--- NOTE | 2019-04-22 21:56 | PROGRESS NOTE ---
DATE: 04/22/2019 SUBJECTIVE: The patient in a moribund state, bed ridden. No complaints. No chest pain. No shortness of breath. PHYSICAL EXAMINATION: Vital Signs: Temperature 98, pulse 79. Vitals are stable. I's and O's are breaking even. Lungs: Decreased breath sounds on the right side. Abdomen: Belly is soft, nontender. Extremities: Decreased edema. ASSESSMENT AND PLAN: 1. Hepatitis C. Awaiting hepatitis C, [employer] and quantitative analysis 2. Splenomegaly. 3. Pancytopenia. 4. Edema and congestive heart failure. Continue IV Lasix. 5. Chronic renal failure. Stable. 6. Cancer of the prostate. Stable on Butts catheter. 7. Rash. On IV prednisone. He is improving. 8. Constipation, on MiraLAX. 9. Chronic back pain, stable. 10. Living will: DO NOT RESUSCITATE, and consider palliative care consult. LEVEL OF DOCUMENTATION: Twenty-five minutes. cc: Abraham Churchill MD
[2019-04-23] MEDS: BUMEX PO SCH ×2 (06:16→13:51)
[2019-04-23] MEDS: LASIX IV SCH (06:16)
[2019-04-23 08:39] LABS: HEMATOCRIT 30.5 % (42.0-52.0); HEMOGLOBIN 9.6 g/dL (14.0-18.0); MCH 33.8 PG (27-31); MCHC 31.5 g/dL (33-37); MCV 107.4 FL (81-99); MPV 9.9 FL (7.4-10.4); RBC 2.84 XMIL (4.7-6.1); RDW 12.8 % (11.5-14.5); WBC 2.93 X1000 (4.8-10.8)
[2019-04-23 08:55] LABS: ALB/GLOB RATIO 0.5; ALBUMIN 2.1 g/dL (3.5-5.0); CALCIUM 8.4 mg/dL (8.8-10.2); CREATININE 2.3 mg/dL (0.7-1.2); POTASSIUM 4.1 mmol/L (3.5-5.1); TOTAL BILIRUBIN 0.47 mg/dL (0.20-1.00); TOTAL PROTEIN 6.6 g/dL (6.3-8.3)
[2019-04-23] MEDS: FORTICAL NAS SCH (09:49)
[2019-04-23] MEDS: MIRALAX PO SCH (09:50)
[2019-04-23] MEDS: LEXAPRO PO SCH (09:50)
--- NOTE | 2019-04-23 12:21 | PROGRESS NOTE ---
DATE: 04/23/2019 SUBJECTIVE: The patient is a little better, no complaints, still in a moribund state. OBJECTIVE: Vital Signs: On physical examination, temperature is 97 degrees. Vitals are stable. Weight is 185 pounds. Intake/output -920. HEENT Exam: Multiple basal cells noted. Rash is better. Chest: Decreased breath sounds. Suboptimal exam. Extremities: There is 1+ pedal edema. ASSESSMENT AND PLAN: 1. Chronic hepatitis C splenomegaly. Check the hepatitis C, [employer] and quantitative hepatitis C. Stable platelet count. 2. Fluid in the right lung. We will check the chest x-ray. Decrease intravenous Lasix once daily. 3. Questionable allergic rash is better on prednisone. 4. Constipation is improving and continue present treatment. We will hopefully discharge on Thursday. LEVEL OF DOCUMENTATION: 25 minutes. cc: Abraham Churchill MD
[2019-04-23] MEDS: NORCO-5 PO PRN (14:34)
[2019-04-23] MEDS: SOLU-MEDROL IV SCH (16:59)
[2019-04-23] MEDS: DESYREL PO SCH (21:33)
[2019-04-23] MEDS: FLOMAX PO SCH (21:33)
[2019-04-23] MEDS: PEPCID PO SCH (21:33)
[2019-04-24] MEDS: BUMEX PO SCH ×2 (06:05→13:54)
--- NOTE | 2019-04-24 08:42 | Diag Imaging Result Doc PS360 ---
EXAM: CHEST-2 VIEWS INDICATION: hypoxia TECHNIQUE: 2 views COMPARISON: 04/21/2019 FINDINGS: The left pleural fluid collection is approximately stable. The right pleural fluid collection is stable to slightly smaller. Interstitial edema has improved bilaterally, especially on the right. No new consolidation is identified. Cardiac silhouette is stable. IMPRESSION: Interval improvement as described. Electronically signed by Keron Stephen 04/24/2019 8:40 AM
[2019-04-24] MEDS: LEXAPRO PO SCH (09:29)
[2019-04-24] MEDS: MIRALAX PO SCH (09:29)
[2019-04-24] MEDS: LASIX IV SCH (09:30)
[2019-04-24] MEDS: FORTICAL NAS SCH (09:30)
--- NOTE | 2019-04-24 11:18 | PROGRESS NOTE ---
DATE: 04/24/2019 SUBJECTIVE: The patient is out of the bed, getting better. Chest x-ray stable. Caregiver was at bedside. No complaints. PHYSICAL EXAMINATION: Vital Signs: Temperature is 97 degrees, pulse 69, blood pressure 123/61. Weight 166 pounds. HEENT: Multiple skin lesions consistent with basal cell. Back: Kyphotic. Lungs: Decreased breath sounds on the right side. Heart: Heart sounds are regular. Abdomen: Belly is soft, obese, nontender. Extremities: There is 1+ pedal edema in both legs. LABORATORY DATA: White cell count 2.9, hematocrit 30, platelets 66,000. Creatinine 2.3. Hepatitis C is active. ASSESSMENT AND PLAN: 1. Congestive heart failure with pleural effusion, improving. 2. Chronic kidney disease, stable. 3. Prostate cancer, stable. 4. Pancytopenia due to splenomegaly. 5. 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 6. Hepatitis C. [employer] was ordered. Ultrasound of the abdomen did not show any lesions. If he continues to improve, will discharge in the morning with Palliative Care consult. Living will DO NOT RESUSCITATE. LEVEL OF DOCUMENTATION: 35 minutes. cc: Abraham Churchill MD
[2019-04-24] MEDS: SOLU-MEDROL IV SCH (16:47)
[2019-04-24] MEDS: DESYREL PO SCH (20:16)
[2019-04-24] MEDS: FLOMAX PO SCH (20:16)
[2019-04-24] MEDS: PEPCID PO SCH (20:16)
[2019-04-25] MEDS: BUMEX PO SCH (07:47)
[2019-04-25 08:10] VITALS: BP 109/60
[2019-04-25] MEDS: FORTICAL NAS SCH (08:53)
[2019-04-25] MEDS: LASIX IV SCH (08:55)
[2019-04-25] MEDS: NORCO-5 PO PRN (08:55)
[2019-04-25] MEDS: LEXAPRO PO SCH (08:55)
[2019-04-25] MEDS: MIRALAX PO SCH (08:56)
--- NOTE | 2019-04-26 11:15 | DISCHARGE SUMMARY ---
ADMISSION DATE: 04/20/2019 DISCHARGE DATE: 04/25/2019 DISCHARGING DIAGNOSIS: Generalized rash due to allergic drug rash. SECONDARY DIAGNOSES: 1. Diastolic congestive heart failure with right pleural effusion. 2. Aortic stenosis. 3. C-spine spondylosis. 4. History of compression fracture of L1-L2 with kyphoplasty changes. 5. Mild cognitive impairment. 6. Deconditioning. 7. Gout. 8. Chronic hepatitis C virus with cirrhosis. 9. Hypertension. 10. Prostate cancer. 11. Multiple basal cell carcinoma on the face. 12. Chronic kidney failure stage III. Creatinine 2.4. 13. Pancytopenia due to splenomegaly. BRIEF HISTORY: Please see the H and P that was done on 04/20/2019. In brief, this is an 83-year- old white male who had some deconditioning. Under the pain clinic for chronic back pain. Basically he was admitted to the hospital with a generalized edema, shortness of breath, rash. HOSPITAL COURSE: 1. For the rash, it started after Levaquin for cellulitis of legs. He was given IV steroids. 2. Generalized anasarca due to combination of diastolic heart failure and chronic hepatitis C due to splenomegaly. He has pancytopenia due to splenomegaly. At this time, he is not a candidate for active treatment. He was given Butts catheter and IV Lasix with excellent diuresis. Followup chest x-ray improving the fluid in the right lung. The patient does have living will, DNR. LABORATORY DATA: During this admission: White cell count 2.9, hematocrit 30.5, platelets 66,000. Sodium 140, potassium 4.1, chloride 98, BUN 69, creatinine 2.3. Calcium 8.4, albumin 2.1. Hep C is 1.2 million units per mL. Hepatitis C FibroTtest reported the DL4. The discharging weight was 173 pounds. DISCHARGE INSTRUCTIONS ARE FOLLOWS: 1. Trazodone 100 mg daily. 2. Flomax 0.4 daily. 3. Bumex 1 mg p.o. b.i.d. 4. Pepcid 20 by mouth b.i.d. 5. MiraLAX 17 g every other day. 6. Lasix 40 p.o. b.i.d. 7. Calcitonin spray daily. 8. Lexapro 10 daily. 9. Lorcet 1 tablet b.i.d. as needed. 10. Outpatient workup for home health. 11. Palliative consult was initiated. 12. Living will, DNR. 13. Continue to follow up with pain specialist Dr. Mccann. cc: MD Estephania Robbins
== END 2019-04-25 11:34 | disposition home health service (06) | DRG 291 ==
LOC: DIRADM 14:59 → EDIPHOLD 16:32 → 3N 19:54
PROVIDERS: ADMIT Internal Medicine; ATTEND Internal Medicine